=== PATIENT | female | born 1960 | race Caucasian/White ===

== ENCOUNTER 2017-01-10 21:03 | Emergency (ER) | payer MEDICARE, OTHER ==
[~2017-01-10 21:03] MED LIST: AMARYL 2MG TABLE2 MG PO; BYDUREON P2 MG/0.65 INJ; COREG 12.5MG12.5 MG PO; COUMADIN 2.5MG2.5 MG PO; GLUCOPHAGE1000 MG PO; IMDUR ER TAB 3030 MG PO; LANOXIN TAB0.125 MG PO; LANTUS100 UNIT/1 SQ; LYRICA25 MG PO; OXYCODONE HCL15 MG PO
[2017-01-11 00:05] LABS: HEMOGLOBIN 14.4 gm/dl (12.3-15.3); RED BLOOD COUNT 4.38 M/UL (4.00-5.10); WHITE BLOOD COUNT 8.7 K/UL (4.5-11.0)
[2017-01-11 00:25] LABS: BUN/CREATININE RATIO 9 (0-10)
== END 2017-01-11 04:30 | disposition home or self-care (01) ==
LOC: ER1 21:03
PROVIDERS: Physician Assistant
DX: K52.9 Noninfective gastroenteritis and colitis, unspecified (principal); I25.2 Old myocardial infarction; Z86.73 Personal history of transient ischemic attack (TIA), and cerebral infarction without residual deficits; Z86.79 Personal history of other diseases of the circulatory system; Z85.3 Personal history of malignant neoplasm of breast; Z79.82 Long term (current) use of aspirin; Z79.02 Long term (current) use of antithrombotics/antiplatelets; Z79.899 Other long term (current) drug therapy; Z79.84 Long term (current) use of oral hypoglycemic drugs; Z79.4 Long term (current) use of insulin
CPT/HCPCS: 36415; 71010; 71260; 80053; 80162; 81001; 82550; 82553; 83690; 83874; 84484; 85025; 87086; 93005; 96361; 96365; 96375; 96376; 99285; C9113; J1956; J2270; J2405; J2550; J7050; Q9962